=== PATIENT | male | born 1985 | race African-American/Black ===

== ENCOUNTER → 2017-01-15 | Outpatient (CLI) | payer OTHER ==
[2017-01-15 12:04] LABS: ALBUMIN 4.2 GM/DL (3.2-5.2); ALBUMIN/GLOBULIN RATIO 1.17 (1.00-1.93); ALKALINE PHOSPHATASE 61 U/L (45-117); ALT/SGPT 29 U/L (12-78); ANION GAP 4 MEQ/L (8-16); AST/SGOT 22 U/L (15-37); BILIRUBIN,TOTAL 0.6 MG/DL (0.2-1.0); BLOOD UREA NITROGEN 16 MG/DL (7-18); CALCIUM LEVEL 8.8 MG/DL (8.5-10.1); CARBON DIOXIDE LEVEL 31 MEQ/L (21-32); CHLORIDE LEVEL 103 MEQ/L (98-107); CREATININE FOR GFR 1.23 MG/DL (0.70-1.30); GLOMERULAR FILTRATION RATE > 60.0 (>60); GLUCOSE, FASTING 90 MG/DL (70-105); POTASSIUM SERUM 4.4 MEQ/L (3.5-5.1); SODIUM LEVEL 138 MEQ/L (136-145); TOTAL PROTEIN 7.8 GM/DL (6.4-8.2)
== END ==
LOC: M LAB 10:57
PROVIDERS: ATTEND Psychiatry & Neurology Neurology
DX: R51 Headache (principal)

== ENCOUNTER → 2017-01-15 | Outpatient (CLI) | payer OTHER | LOC: M LAB 10:53 | PROVIDERS: ATTEND Student in an Organized Health Care Education/Training Program | DX: Z30.8 Encounter for other contraceptive management (principal) ==

== ENCOUNTER → 2017-01-18 | Outpatient (REF) | payer OTHER ==
[2017-01-18 12:19] LABS: % NORMAL FORMS 5 % (>=4); IMMOTILITY 63 %; NON PROGRESSIVE MOTILITY (c) 11 %; PROGRESSIVE MOTILITY (a) 26 % (>=32); SPERM ABNORMAL FORMS OTHER (SPECIFIY); TOTAL MOTILITY 37 % (>=40)
[2017-01-18 12:20] LABS: SPERM# 64.8 M/Ejac (33-46); TOTAL PROGRESSIVE SPERM 16.6 M/Ejac.
== END ==
LOC: M LAB REF 11:59
PROVIDERS: ATTEND Student in an Organized Health Care Education/Training Program
DX: Z30.8 Encounter for other contraceptive management (principal)